=== PATIENT | male | born 1960 | race Caucasian/White ===

== ENCOUNTER 2023-12-26 15:47 | Outpatient (CLI) | payer OTHER, SELFPAY ==
--- NOTE | 2023-12-26 06:00 | DI.RAD_ITS ---
Exam(s) XR PAIN CLINIC LUMBAR SP 2V EXAM: XR PAIN CLINIC LUMBAR SP 2V CLINICAL HISTORY: Dx: Lumbar Radiculopathy TECHNIQUE: 2D and realtime digital imaging was performed. Radiologist not present. CONTRAST MATERIAL: None. COMPARISON: No exams were available for comparison FINDINGS: Fluoroscopy was provided for pain management therapy. Please refer to procedure report or details. Radiation Exposure Index: Ka,r=13.3 mGy IMPRESSION: As above. RADIATION DOSE DELIVERED:
[2023-12-26 16:00] VITALS: BP 130/91; PULSE 78; RESP 20; TEMP 37.1; O2SAT 93
[2023-12-26 16:36] VITALS: PULSE 79; RESP 15; O2SAT 91
[2023-12-26 16:40] VITALS: PULSE 78; RESP 15; O2SAT 93
[2023-12-26 16:47] VITALS: BP 142/96; PULSE 73; O2SAT 92
[2023-12-26] MEDS: Nerve Block Tray 1 EACH MC (16:53)
[2023-12-26] MEDS: Omnipaque 240 MG/ML 50 ML BTL IJ (16:53)
[2023-12-26] MEDS: methylPREDNISolone ACETATE 80 MG/ML VIAL IJ (16:54)
--- NOTE | 2024-01-01 14:27 | PDOC.PAIN ---
Date of service: 01/01/24 Time of Service: 16:00 Pain Managment Procedure Note Procedure Note Procedure Note: PROCEDURE NOTE CAUDAL EPIDURAL STEROID INJECTION Date of Service: December 26, 2023 Patient:? RAYNA WINSLOW JR? Provider:? Mohit Carrillo DO, MPH RAYNA WINSLOW JR has been [facility] for caudal epidural steroid injection.? Pre-operative diagnosis: Lumbosacral Radiculopathy Post-operative diagnosis: Same Pre-Procedure Pain: VAS= 7/10. COMMENTS: I previously evaluated him in the clinic. CARLOSwas interviewed and the medical record was reviewed.? There were no medical, pharmacologic, radiographic or other structural contraindications to attempting fluoroscopically guided epidural steroid injection.? Risks and expected side effects as well as potential benefit of the procedure were reviewed with CARLOS, and the patient's voiced concerns were addressed.? The printed consent form was signed.? Standard time-out procedure was performed. CARLOS was placed in the prone position on the fluoroscopy table and automated blood pressure cuff and pulse oximeter applied.? The skin entry point for entering/approaching the epidural space by a caudal approach through the sacral hiatus ed identified with surgical skin marking.? Following thorough chlorhexidine preparation of the skin and draping and 1% lidocaine infiltration of the skin entry point and subcutaneous tissues, a 17 gauge Touhy needle was placed under fluoroscopic guidance? into the epidural space. Needle tip placement and depth were aided and confirmed by fluoroscopy in the lateral and AP position. There was no paresthesia or return of blood or CSF through the needle. 1 cc of Omnipaque 240 was injected with clear epidural spread confirmed with fluoroscopy. An Arrow 19G radio-opaque epidural catheter was advanced into the epidural space to the L5-S1 level and 2 cc of Omnipaque 240 was injected with clear epidural spread. 80 mg of Depo-Medrol was? injected. There was no unusual discomfort expressed by RAYNA. The needle and catheter were then flushed with 1 cc of 1% Lidocaine and they were removed together without difficulty (49 cc of Omnipaque was wasted). RAYNA was observed and was without hemodynamic, neurologic, or allergic reactions.? Fluoroscopic images were digitally archived. RAYNA's vital signs were stable throughout the procedure and were as recorded in the docflowsheet by the nursing staff.? If given, dosages of intravenous drugs for anxiolysis and analgesia were documented in MAR. Follow up plans and appointments were discussed with RAYNA.? Post procedure instruction was given as documented in nursing documentation and having met discharge criteria, [facility] was [facility] from the [facility]. ? COMMENTS: No apparent complications.? Post-procedure pain: VAS= 0/10. If the patient receives at least 50% improvement in pain and/or function for at least 3 months, this procedure can be repeated. I personally completed the entire procedure. MOHIT CARRILLO DO, MPH [employer]BPM[employer] - Subspecialty board certification in Pain Medicine [facility]
== END 2023-12-26 15:48 | disposition home or self-care (01) ==
LOC: PC 15:48
PROVIDERS: PCP Hospitalist; Visit Provider Preventive Medicine Occupational Medicine
DX: M54.16 Radiculopathy, lumbar region (principal)
CPT/HCPCS: 62323; 72100; J1010; Q9967

== ENCOUNTER 2024-05-12 09:55 | Outpatient (CLI) | payer OTHER, SELFPAY ==
[2024-05-12 10:20] VITALS: BP 138/83; PULSE 76; RESP 20; TEMP 36.7; O2SAT 96
--- NOTE | 2024-05-12 11:05 | PDOC.PAIN ---
Date of service: 05/12/24 Time of Service: 11:22 Pain Managment Procedure Note Procedure Note Procedure Note: Caudal Epidural Steroid Injection ? Location: Caudal Epidural Space ?Pre-procedure Diagnosis: M54.17-Radiculopathy, lumbosacral region M96.1 Postlaminectomy syndrome, not elsewhere classified ? Post-procedure Diagnosis:? The same as above ? Sedation:? none? Estimated blood loss:? less than 2 cc ?Surgeon:? Osbaldo De La Garza MD ? Procedure Detail:?? The procedure and potential risks were explained to the patient and informed written consent was obtained. The patient was escorted to the procedure room and placed in the prone position. Pillows were utilized for proper positioning and comfort. Time out was performed in the procedure room with nursing staff confirming the patient's identity, procedure to be performed, allergies, and any blood thinning or anti-platelet medications. The patient's lower back/coccyx area was prepped with ChloraPrep x2 and draped in a sterile fashion. Sterile technique was maintained throughout the procedure.? Sterile gloves were used, a face mask was worn, and new single dose vials of all medications were used with the top being swabbed with alcohol and given time to dry prior to withdrawal of medication. Subcutaneous 1% lidocaine was instilled into the superficial soft tissue of the patient's lower back/coccyx area for local anesthesia using a 25-gauge 1.5 inch needle. Under fluoroscopic guidance a 17G Tuohy needle was placed within the caudal canal. An 19 G Arrow catheter was directed cephalad to the RIGHT LEFT at L5. 1cc of Omnipaque 240 contrast was injected showing appropriate spread in the caudal epidural space.? Placement was confirmed in AP and lateral projection. 80 mg of Depo-Medrol and 3 ml saline was injected without complication. The needle and catheter was removed intact. The patient tolerated the procedure well and was transported to the recovery area for observation and discharge instructions. Permanent images saved and recorded. Plan:? Follow prn. PAIN: PRE-PROCEDURE 810 POST-PROCEDURE 11/01 COMMENT: Will order MRI as pt had metal removed from eye
--- NOTE | 2024-05-12 11:19 | DI.RAD_ITS ---
Exam(s) XR PAIN CLINIC LUMBAR SP 2V EXAM: XR PAIN CLINIC LUMBAR SP 2V CLINICAL HISTORY: DX: Lumbar Radiculopathy. TECHNIQUE: Fluoroscopy was provided for the referring physician for guidance with performing pain cl inic injection procedure. COMPARISON: No exams were available for comparison FINDINGS: Please see procedure note for details. Fluoro time: 21 seconds RADIATION DOSE DELIVERED: Kar=14.55 mGy
[2024-05-12 11:25] VITALS: PULSE 66; O2SAT 94
[2024-05-12] MEDS: Nerve Block Tray 1 EACH MC (11:25)
[2024-05-12] MEDS: Normal Saline 20 ML VIAL 10 ML IJ (11:25)
[2024-05-12] MEDS: Omnipaque 240 MG/ML 50 ML BTL IJ (11:26)
[2024-05-12] MEDS: methylPREDNISolone ACETATE 40 MG/ML VIAL IJ (11:26)
== END 2024-05-12 09:56 | disposition home or self-care (01) ==
LOC: PC 09:57
PROVIDERS: PCP Physician Assistant Medical; Visit Provider Anesthesiology Pain Medicine
DX: M54.17 Radiculopathy, lumbosacral region (principal); M96.1 Postlaminectomy syndrome, not elsewhere classified
CPT/HCPCS: 00123; 62323; 72100; J1010; Q9967